=== PATIENT | male | born 1975 | race Caucasian/White ===

== ENCOUNTER 2022-11-21 13:34 | Emergency (ER) | payer OTHER ==
[~2022-11-21] VITALS: Ht 190.5 cm; Wt 93.0 kg
[2022-11-21] MEDS ORDERED: DEXEDRINE10 MG (13:49)
== END 2022-11-21 15:43 | disposition home or self-care (01) ==
LOC: ER 13:34
DX: S52.122A Displaced fracture of head of left radius, initial encounter for closed fracture (principal); S52.92XA Unspecified fracture of left forearm, initial encounter for closed fracture; S42.451A Displaced fracture of lateral condyle of right humerus, initial encounter for closed fracture; W05.1XXA Fall from non-moving nonmotorized scooter, initial encounter; Y93.9 Activity, unspecified; Y92.9 Unspecified place or not applicable; Y99.9 Unspecified external cause status
CPT/HCPCS: 73070; 73090; 96372; 99284; J1885

== ENCOUNTER 2023-03-06 14:45 | Outpatient (CLI) | payer OTHER ==
[~2023-03-06 14:45] MED LIST: DEXEDRINE10 MG
== END 2023-03-06 14:55 | disposition home or self-care (01) ==
LOC: RAD 14:45
PROVIDERS: ATTEND Orthopaedic Surgery
DX: M25.521 Pain in right elbow (principal); M25.522 Pain in left elbow